=== PATIENT | female | born 1950 | race Two or more races ===

== ENCOUNTER 2017-08-11 13:04 | Outpatient (CLI) | payer OTHER ==
[~2017-08-11 13:04] MED LIST: LIPITOR20 MG; LISINOPRIL20 MG; PERCOCET 5-3251 EACH PO; SYNTHROID150 MCG; ULTRAM50 MG PO; ZYLOPRIM300 MG
== END 2017-08-11 13:20 | disposition home or self-care (01) ==
LOC: MRI 13:04
DX: M54.5 Low back pain (principal)
CPT/HCPCS: 72148

== ENCOUNTER 2020-08-28 10:41 | Emergency (ER) | payer OTHER ==
[~2020-08-28] VITALS: Ht 167.6 cm; Wt 63.0 kg
== END 2020-08-28 23:00 | disposition home or self-care (01) ==
LOC: ER 10:41
DX: S40.012A Contusion of left shoulder, initial encounter (principal); S00.83XA Contusion of other part of head, initial encounter; R10.84 Generalized abdominal pain; E11.22 Type 2 diabetes mellitus with diabetic chronic kidney disease; I12.9 Hypertensive chronic kidney disease with stage 1 through stage 4 chronic kidney disease, or unspecified chronic kidney disease; N18.9 Chronic kidney disease, unspecified; C18.9 Malignant neoplasm of colon, unspecified; Q61.3 Polycystic kidney, unspecified; N20.0 Calculus of kidney; D64.89 Other specified anemias; R55 Syncope and collapse; W18.09XA Striking against other object with subsequent fall, initial encounter; Y93.89 Activity, other specified; Y92.89 Other specified places as the place of occurrence of the external cause; Y99.8 Other external cause status

== ENCOUNTER 2020-08-31 07:46 | Outpatient (CLI) | payer OTHER | END 2020-08-31 07:54 | disposition home or self-care (01) | LOC: LAB 07:46 | PROVIDERS: ATTEND Internal Medicine Cardiovascular Disease | DX: I10 Essential (primary) hypertension (principal); E11.9 Type 2 diabetes mellitus without complications; R94.5 Abnormal results of liver function studies; E78.1 Pure hyperglyceridemia; E78.00 Pure hypercholesterolemia, unspecified ==

== ENCOUNTER 2022-01-18 10:52 | Outpatient (CLI) | payer OTHER | END 2022-01-18 11:07 | disposition home or self-care (01) | LOC: PPH VACUNA 10:52 | PROVIDERS: ATTEND Emergency Medicine Pediatric Emergency Medicine | DX: Z23 Encounter for immunization (principal) ==

== ENCOUNTER 2022-06-28 02:39 | Emergency (ER) | payer OTHER ==
[~2022-06-28] VITALS: Ht 160 cm; Wt 86.6 kg
[2022-06-28] MEDS ORDERED: PROTONIX20 MG PO (02:50)
[2022-06-28] MEDS ORDERED: ALLOPURINOL100 MG PO (02:50)
[2022-06-28] MEDS ORDERED: GLIMEPIRIDE2 MG PO (02:51)
== END 2022-06-28 07:05 | disposition home or self-care (01) ==
LOC: ER 02:39
DX: R11.10 Vomiting, unspecified (principal); Z85.038 Personal history of other malignant neoplasm of large intestine; E11.9 Type 2 diabetes mellitus without complications; Z79.84 Long term (current) use of oral hypoglycemic drugs

== ENCOUNTER 2022-07-18 20:45 | Emergency (ER) | payer OTHER ==
[~2022-07-18] VITALS: Ht 167.6 cm; Wt 86.2 kg
[~2022-07-18 20:45] MED LIST changes: +ALLOPURINOL100 MG PO; +GLIMEPIRIDE2 MG PO; +PROTONIX20 MG PO
[2022-07-18] MEDS ORDERED: DRAMAMINE25 M2 PO (23:58)
== END 2022-07-19 00:19 | disposition home or self-care (01) ==
LOC: ER 20:45
DX: R42 Dizziness and giddiness (principal); E11.9 Type 2 diabetes mellitus without complications; Z79.84 Long term (current) use of oral hypoglycemic drugs; I10 Essential (primary) hypertension; R11.2 Nausea with vomiting, unspecified

== ENCOUNTER → 2025-01-29 | Emergency (ER) | payer OTHER ==
[~2025-01-29] VITALS: Ht 160 cm; Wt 81.6 kg
[~2025-01-29] MED LIST changes: +COZAAR100 MG PO; +DEXAMETHASONE SODIUM PHOSPHATE 4 MG/ML VIAL IM STA; +DRAMAMINE25 M2 PO; +KETOROLAC TROMETHAMINE 60 MG VIAL IM STA; +SYNTHROID150 MCG PO
== END | disposition home or self-care (01) ==
LOC: ER
DX: M25.511 Pain in right shoulder (principal); Z88.1 Allergy status to other antibiotic agents; M19.90 Unspecified osteoarthritis, unspecified site